=== PATIENT | female | born 1980 | race Two or more races ===

== ENCOUNTER 2024-05-31 11:54 | Emergency (ER) | payer OTHER ==
[~2024-05-31] VITALS: Ht 162.6 cm; Wt 69.4 kg
[2024-05-31] MEDS ORDERED: DEXAMETHASONE SODIUM PHOSPHATE 4 MG/ML VIAL IM ONE (15:30)
[2024-05-31] MEDS ORDERED: KETOROLAC TROMETHAMINE 60 MG VIAL IM ONE (15:30)
[2024-05-31] MEDS ORDERED: ORPHENADRINE CITRATE 30 MG/ML AMPUL IM ONE (15:30)
[2024-05-31] MEDS ORDERED: DICLOFENAC SODI50 MG PO (15:40)
[2024-05-31] MEDS ORDERED: MEDROLPACK PO (15:40)
[2024-05-31] MEDS ORDERED: NORFLEX100MG PO (15:40)
== END 2024-05-31 16:52 ==
LOC: ER 11:56
DX: M62.838 Other muscle spasm (principal); M79.7 Fibromyalgia

== ENCOUNTER 2024-06-03 21:15 | Emergency (ER) | payer OTHER ==
[~2024-06-03] VITALS: Ht 162.6 cm; Wt 68.0 kg
[~2024-06-03 21:15] MED LIST: DICLOFENAC SODI50 MG PO; MEDROLPACK PO; NORFLEX100MG PO
[2024-06-03] MEDS ORDERED: DEXAMETHASONE SODIUM PHOSPHATE 4 MG/ML VIAL IM STA (22:20)
[2024-06-03] MEDS ORDERED: ORPHENADRINE CITRATE 30 MG/ML AMPUL IM STA (22:20)
[2024-06-03] MEDS ORDERED: KETOROLAC TROMETHAMINE 60 MG VIAL IM STA (22:21)
[2024-06-03] MEDS ORDERED: OxyCODONE HCL/APAP UD (PERCOCET) PO STA (22:21)
== END 2024-06-03 22:44 | disposition home or self-care (01) ==
LOC: ER 21:18
DX: G24.3 Spasmodic torticollis (principal)
CPT/HCPCS: 96372; 99282; J1100; J1885; J2360

== ENCOUNTER 2024-06-06 17:39 | Emergency (ER) | payer OTHER ==
[~2024-06-06] VITALS: Ht 162.6 cm; Wt 68.0 kg
[2024-06-06] MEDS ORDERED: DEXAMETHASONE SODIUM PHOSPHATE 4 MG/ML VIAL IM STA (19:38)
[2024-06-06] MEDS ORDERED: KETOROLAC TROMETHAMINE 30 MG VIAL IM STA (19:38)
[2024-06-06] MEDS ORDERED: KETOROLAC TROMETHAMINE 30 MG VIAL ONE (20:32)
[2024-06-06] MEDS ORDERED: DEXAMETHASONE SODIUM PHOSPHATE 4 MG/ML VIAL ONE (20:32)
[2024-06-06] MEDS ORDERED: IBU800 MG PO (21:49)
== END 2024-06-06 22:27 | disposition home or self-care (01) ==
LOC: ER 17:42
DX: M54.2 Cervicalgia (principal); M71.9 Bursopathy, unspecified
CPT/HCPCS: 72040; 73030; 96372; 99283; J1100; J1885

== ENCOUNTER 2024-06-08 13:15 | Emergency (ER) | payer OTHER ==
[~2024-06-08] VITALS: Ht 162.6 cm; Wt 70.3 kg
[~2024-06-08 13:15] MED LIST changes: +IBU800 MG PO
[2024-06-08 13:33] VITALS: BP 119/74; O2SAT 100
[2024-06-08] MEDS ORDERED: METHADONE (13:34)
[2024-06-08] MEDS ORDERED: DICLOFENAC-MIS1 EAC3 (13:34)
[2024-06-08] MEDS ORDERED: TRIAMCINOLONE ACETONIDE 40 MG/ML VIAL IM ONE (14:00)
[2024-06-08] MEDS ORDERED: TRAMADOL HCL 50 MG TABLET PO ONE (14:00)
[2024-06-08] MEDS ORDERED: CELEBREX200MG PO (14:01)
[2024-06-08] MEDS ORDERED: TRIAMCINOLONE ACETONIDE 40 MG/ML VIAL ONE (14:06)
== END 2024-06-08 14:15 | disposition home or self-care (01) ==
LOC: ER 13:15
DX: M54.2 Cervicalgia (principal)

== ENCOUNTER 2024-11-14 11:19 | Emergency (ER) | payer OTHER ==
[~2024-11-14] VITALS: Ht 162.6 cm; Wt 68.0 kg
[~2024-11-14 11:19] MED LIST changes: +CELEBREX200MG PO; +DICLOFENAC-MIS1 EAC3; +METHADONE
[2024-11-14] MEDS ORDERED: 0.9 % SODIUM CHLORIDE 1,000 ML IV SCH (11:45)
[2024-11-14] MEDS ORDERED: KETOROLAC TROMETHAMINE 30 MG VIAL IV ONE (11:45)
[2024-11-14 12:15] LABS: URINE APPEARANCE Clear; URINE BILIRRUBIN Negative (NEGATIVE); URINE BLOOD Negative; URINE COLOR Yellow; URINE GLUCOSE Negative (NEGATIVE); URINE KETONE Negative (NEGATIVE); URINE LEUKOCYTE Negative; URINE NITRATE Negative; URINE PROTEIN Negative (NEGATIVE); URINE UROBILINOGEN 0.2 E.U./dl
[2024-11-14 12:16] LABS: URINE BACTERIA 945.5 uL (0.0-1933); URINE EPITHELIAL CELLS 20.7 uL (0.0-38.8); URINE RBC 13.6 uL (0.0-20.8); URINE WBC 23.2 uL (0.0-23.2)
[2024-11-14 12:22] LABS: BASO % 0.6 % (0.1-1.2); EOS # 0.13 (0.04-0.54); EOS % 1.6 % (0.7-7.0); LYMPH # 2.19 (1.18-3.74); LYMPH % 26.7 % (19.3-53.1); MEAN PLATELET VOLUME 9.30 fl (9.4-12.4); MONO # 0.84 (0.24-0.82); MONO % 10.2 % (4.7-12.5); NEUT # 4.94 (1.56-6.13); NEUT % 60.2 % (34.0-71.1); RED CELL DISTRIBUTION WIDTH 14.4 % (11.6-14.4)
[2024-11-14 12:49] LABS: BUN CREA RATIO 14.0 (7.0-25.0); CREATININE SERUM 0.72 mg/dL (0.55-1.02); GFR 88.83; GLUCOSE FASTING 97.0 mg/dL (65-100); OSMOLALITY SERUM 278.0 MOSM/KG (275-295)
[2024-11-14 12:58] LABS: TYPE CELLS SQUAMOUS; URINE CAST 1.17 uL (0.0-1.40); URINE MUCUS SCANT
== END 2024-11-14 16:20 | disposition home or self-care (01) ==
LOC: ER 11:19
PROVIDERS: Emergency Medicine
DX: R10.9 Unspecified abdominal pain (principal); R10.2 Pelvic and perineal pain
CPT/HCPCS: 36415; 74177; Q9965

== ENCOUNTER 2025-01-07 20:07 | Emergency (ER) | payer OTHER ==
[~2025-01-07] VITALS: Ht 162.6 cm; Wt 70.3 kg
[2025-01-07] MEDS ORDERED: NITROGLYCERIN 0.4 MG TAB.SUBL SL ONE (21:15)
[2025-01-07 21:26] LABS: BASO % 0.6 % (0.1-1.2); EOS # 0.16 (0.04-0.54); EOS % 1.9 % (0.7-7.0); LYMPH # 2.70 (1.18-3.74); LYMPH % 32.3 % (19.3-53.1); MEAN PLATELET VOLUME 9.30 fl (9.4-12.4); MONO # 0.65 (0.24-0.82); MONO % 7.8 % (4.7-12.5); NEUT # 4.75 (1.56-6.13); RED CELL DISTRIBUTION WIDTH 13.8 % (11.6-14.4)
[2025-01-07 22:04] LABS: BASOPHIL MAN 2.0 %; LYMPHOCYTE MAN 30.0 %; MONOCYTE MAN 10.0 %; NEUT % 56.9 % (34.0-71.1); NEUTROPHILS MAN 56.0 %
[2025-01-07] MEDS ORDERED: NORFLEX100MG PO (22:29)
== END 2025-01-07 22:36 | disposition home or self-care (01) ==
LOC: ER 20:08
PROVIDERS: General Practice
DX: R00.2 Palpitations (principal); I49.8 Other specified cardiac arrhythmias; Z85.528 Personal history of other malignant neoplasm of kidney; R07.89 Other chest pain

== ENCOUNTER 2025-02-06 08:20 | Emergency (ER) | payer OTHER ==
[~2025-02-06] VITALS: Ht 162.6 cm; Wt 68.0 kg
[2025-02-06 08:31] VITALS: BP 104/74; O2SAT 99
[2025-02-06] MEDS ORDERED: INDERAL XL80 MG PO (08:33)
[2025-02-06] MEDS ORDERED: DEXAMETHASONE SODIUM PHOSPHATE 4 MG/ML VIAL IM STA (09:33)
[2025-02-06] MEDS ORDERED: ACETAMINOPHEN 500 MG GEL..CAP PO ONE ×2 (09:38→09:45)
[2025-02-06] MEDS ORDERED: DEXAMETHASONE SODIUM PHOSPHATE 4 MG/ML VIAL ONE (09:38)
[2025-02-06] MEDS ORDERED: ORPHENADRINE CITRATE 100 MG TABLET PO ONE (09:45)
[2025-02-06 10:15] LABS: BASO % 0.7 % (0.1-1.2); EOS # 0.08 (0.04-0.54); EOS % 1.4 % (0.7-7.0); LYMPH # 0.99 (1.18-3.74); LYMPH % 17.0 % (19.3-53.1); MEAN PLATELET VOLUME 9.30 fl (9.4-12.4); MONO # 0.52 (0.24-0.82); MONO % 8.9 % (4.7-12.5); NEUT # 4.17 (1.56-6.13); NEUT % 71.7 % (34.0-71.1); RED CELL DISTRIBUTION WIDTH 14.0 % (11.6-14.4)
[2025-02-06 10:36] LABS: BUN CREA RATIO 15.0 (7.0-25.0); CREATININE SERUM 0.71 mg/dL (0.55-1.02); GFR 90.27; GLUCOSE FASTING 94.0 mg/dL (65-100); OSMOLALITY SERUM 284.0 MOSM/KG (275-295)
[2025-02-06 10:37] LABS: INR 0.94
== END 2025-02-06 14:17 | disposition home or self-care (01) ==
LOC: ER 08:21
PROVIDERS: General Practice
DX: R53.1 Weakness (principal); R20.0 Anesthesia of skin; R51.9 Headache, unspecified

== ENCOUNTER 2025-02-20 18:39 | Emergency (ER) | payer OTHER ==
[~2025-02-20] VITALS: Ht 162.6 cm; Wt 70.3 kg
[~2025-02-20 18:39] MED LIST changes: +INDERAL XL80 MG PO
[2025-02-20 21:17] VITALS: BP 112/75
[2025-02-21] MEDS ORDERED: KETOROLAC TROMETHAMINE 30 MG VIAL IM ONE (00:30)
[2025-02-21] MEDS ORDERED: KETOROLAC TROMETHAMINE 30 MG VIAL ONE (00:37)
[2025-02-21 00:54] LABS: BASO % 0.5 % (0.1-1.2); EOS # 0.19 (0.04-0.54); EOS % 2.3 % (0.7-7.0); LYMPH # 2.55 (1.18-3.74); LYMPH % 31.2 % (19.3-53.1); MEAN PLATELET VOLUME 9.10 fl (9.4-12.4); MONO # 0.81 (0.24-0.82); MONO % 9.9 % (4.7-12.5); NEUT # 4.56 (1.56-6.13); NEUT % 55.9 % (34.0-71.1); RED CELL DISTRIBUTION WIDTH 14.4 % (11.6-14.4)
[2025-02-21 01:16] LABS: ALT/SGPT 20.0 U/L (12-78); AST/SGOT 8.0 U/L (15-37); BILIRUBIN TOTAL 0.26 mg/dL (0.3-1.2); BUN CREA RATIO 16.0 (7.0-25.0); CREATININE SERUM 0.8 mg/dL (0.55-1.02); GFR 78.66; GLOBULINA 3.6 G/DL (2.4-3.5); GLUCOSE FASTING 102.0 mg/dL (65-100); OSMOLALITY SERUM 280.0 MOSM/KG (275-295)
[2025-02-21 02:03] LABS: URINE APPEARANCE Turbid; URINE BILIRRUBIN Negative (NEGATIVE); URINE BLOOD Negative; URINE COLOR Yellow; URINE GLUCOSE Negative (NEGATIVE); URINE KETONE Negative (NEGATIVE); URINE LEUKOCYTE Trace; URINE NITRATE Negative; URINE PROTEIN Trace (NEGATIVE); URINE UROBILINOGEN 0.2 E.U./dl
[2025-02-21 02:07] LABS: URINE CAST 4.83 uL (0.0-1.40); URINE RBC 24.9 uL (0.0-20.8); URINE WBC 224.4 uL (0.0-23.2)
[2025-02-21 02:22] LABS: URINE BACTERIA > 9821.5 uL (0.0-1933); URINE EPITHELIAL CELLS > 201.7 uL (0.0-38.8)
[2025-02-21] MEDS ORDERED: NORFLEX100MG PO (02:47)
[2025-02-21] MEDS ORDERED: KETO10TA2 PO (02:47)
[2025-02-21] MEDS ORDERED: CEPHALEXIN500 MG PO (02:47)
[2025-02-21] MEDS ORDERED: ORPHENADRINE CITRATE 30 MG/ML AMPUL IM STA (02:53)
[2025-02-21 03:01] VITALS: O2SAT 100
== END 2025-02-21 03:02 ==
LOC: ER 18:40
PROVIDERS: Preventive Medicine Public Health & General Preventive Medicine
DX: R10.20 Pelvic and perineal pain unspecified side (principal); M54.9 Dorsalgia, unspecified; V89.2XXA Person injured in unspecified motor-vehicle accident, traffic, initial encounter; M54.2 Cervicalgia; N39.0 Urinary tract infection, site not specified